=== PATIENT | female | born 1990 | race Hispanic/Latino ===

== ENCOUNTER 2017-04-01 01:08 | Emergency (ER) | payer OTHER ==
[~2017-04-01] VITALS: Ht 165.1 cm; Wt 83.2 kg
[~2017-04-01 01:08] MED LIST: METO50TA3 PO
[2017-04-01 01:15] VITALS: BP 130/86; PULSE 79; RESP 20; O2SAT 98
--- NOTE | 2017-04-01 01:22 | ED.REPORT ---
HPI-Sore Throat ONLY HPI/PE done Apr 01, 2017 ED Provider: Kulwinder Jensen MD A 26 year old female with a history of atrial fibrillation presents to the ED complaining of a sore throat. The pain began two days ago and has persisted since. She also admits to lower abdominal pain, vaginal discharge and urinary frequency but denies dysuria. The pt denies recent sexual activity. Nursing Notes Stated Complaint: SORE THROAT AND ABD PAIN Chief Complaint: Female Abdominal Pain Nursing Notes Reviewed: Yes Allergies: Coded Allergies: No Known Allergies (Verified Allergy, Unknown, 03/12/14) Scheduled Metoprolol Tartrate (Metoprolol Tartrate) Unknown Strength Tablet Unknown Dose PO BID General Time Seen by MD: 01:20 Chief Complaint Sore throat Hx Obtained From: Patient Arrived By: Walk-in Onset Occurred: 2 days ago Symptom Duration: Since onset Recent Healthcare: No recent hospitalization, Recent doctor visit Similar Sx Previous: No Past Medical History Past Medical History atrial fibrillation Past Surgical History Reports: Tonsillectomy Family History Noncontributory Smoking History Never Smoker Social History Alcohol Use: Denies alcohol use Drug Use: Denies drug use Other Social History: Local resident Ambulatory Status Independent Review of Systems Ears / Nose / Throat: Reports: Sore throat Respiratory: Denies: Non-productive cough, Shortness of breath GI: Reports: Abdominal pain, Denies: Vomiting Skin: Denies Rash Complete sys rev & neg: except as marked. Cardiovascular: Denies: Chest pain Female: Reports: Urinary frequency, Denies: Dysuria Physical Exam Initial Vital Signs Vital Signs (First) Date Time Temp Pulse Resp B/P Pulse Ox O2 Delivery O2 Flow Rate FiO2 04/01/17 01:15 36.9 79 20 130/86 98 Room Air Initial VS: Reviewed, Vital signs normal General/Constitutional: Awake, Alert Appearance / Presentation: Positive: Obese, morbidly ENT: Atraumatic, Airway patent, Mucous membranes moist, Pharynx NL Neck: Atraumatic, Supple, Full range of motion Head / Eyes: Atraumatic, Normocephalic, PERRL, EOMI Respiratory / Chest: Atraumatic, Breath sounds NL, Breath sounds = bilat, No respiratory distress Cardiovascular: Heart rate NL, Regular rhythm, Heart sounds NL Abdomen: Atraumatic, Soft mild suprapubic tenderness Skin: Atraumatic, Color NL, No rash, Warm, Dry Neurologic: Oriented X3, Speech NL, No motor deficits, No sensory deficits Back: Atraumatic, Full range of motion, No CVA tenderness Upper Extremity / MS: Atraumatic, Full range of motion Lower Extremity / Pelvis / MS: Atraumatic, Full range of motion Psychiatric: Affect NL, Mood NL Interpretation & Diagnostics Lab Results Interpretation Test 04/01/17 01:30 Urine Color Yellow (YELLOW) Urine Appearance Clear (CLEAR,HAZY) Urine pH 6.0 (5.0-8.0) Urine Specific [place] 1.020 (1.003-1.035) Urine Protein Negativemg/dL (NEG,TRACE) Urine Glucose (UA) Negativemg/dL (NEGATIVE) Urine Ketones Negativemg/dL (NEGATIVE) Urine Occult Blood Small (NEGATIVE) Urine Nitrite Negative (NEGATIVE) Urine Bilirubin Negative (NEGATIVE) Urine Urobilinogen Normalmg/dL (NORMAL) Urine Leukocyte Esterase Moderate (NEGATIVE) Urine RBC 3-10/hpf (0-2) Urine WBC 11-50/hpf (0-5) Urine Epithelial Cells Occasional/hpf (NONE-MOD) Urine Crystals None seen (NONE SEEN) Urine Bacteria Few/hpf (NONE-FEW) Urine Hyaline Casts None/lpf (NONE) Urine Granular Casts None seen (NONE SEEN) Urine Waxy Casts None seen (NONE SEEN) Urine Red Blood Cell Casts None seen (NONE SEEN) Urine White Blood Cell Casts None seen (NONE SEEN) Urine Mucus None seen (None Seen) Urine Trichomonas Present (NONE SEEN) Urine Yeast None (NONE SEEN) Urinalysis Comment None Urine Culture Reflexed Indicated Lab Results Interpretation: TNTC WBC per hpf, culture pending Re-Eval/Medical Decision Med Decision/Clinical Course 18-year-old female with a sore throat for 2 days and mild dysuria and frequency for a day. Strep test is negative. Urinalysis shows TNTC WBC per hpf. GEN probe and culture are both pending. Macrodantin prepack dispensed. Source of Hx: Old records Re-Evaluation/Progress : Time of Eval: 02:08 Patient Status: Condition improved Re-Evaluation/Progress Note: Pt rechecked, who is comfortable. She is informed of her lab results and diagnosis, as well as the plan for discharge. The pt understands and agrees with the plan. All questions are addressed at this time. Counseled Regarding: Diagnosis, Lab results, Need for follow-up, When/why to return to ED Discharge & Departure Primary Impression: UTI (urinary tract infection) Urinary tract infection type: acute cystitis Hematuria presence: without hematuria Qualified Code: N30.00 - Acute cystitis without hematuria Disposition: Home Discharge Condition All VS Reviewed: Yes Condition: Stable Patient Instructions: Urinary Tract Infection in Women (ED) Additional Instructions: You have a urine infection. You do not have strep throat. Nitrofurantoin ( MacroBID) 100 mg by mouth twice a day, #20 dispensed. Drink plenty of fluids and cranberry juice. Follow up as needed for persistent symptoms. Urine culture and STD testing are pending. Referrals: Salina Gonzalez MD (PCP) Sheng Attestation Portions of this note were transcribed by Vu Fontaine. I, Dr. Jensen personally performed the history, physical exam and medical decision-making; I reviewed and confirmed the accuracy of the information in the transcribed note. Signed by: Sheng Lanza, 04/01/2017 and 0240. copies to: Salina Gonzalez MD, Howard L MD Apr 01, 2017 01:22 VU FONTAINE Apr 01, 2017 02:07
[2017-04-01 01:59] LABS: APPEARANCE,URINE CLEAR (CLEAR,HAZY); COLOR,URINE YELLOW (YELLOW)
[2017-04-01 02:00] LABS: OCCULT BLOOD,URINE SMALL (NEGATIVE); UROBILINOGEN,URINE NORMAL (NORMAL)
[2017-04-01] MEDS ORDERED: _Nitrofurantoin Macrocrystal 100 mg Capsule PO SCH (08:30)
== END 2017-04-01 02:40 | disposition home or self-care (01) ==
LOC: SED 01:08
DX: N30.00 Acute cystitis without hematuria (principal)